=== PATIENT | male | born 1965 | race American Indian/Alaskan Native ===

== ENCOUNTER 2021-01-02 15:13 | Emergency (ER) | payer OTHER ==
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
[2021-01-02 16:42] VITALS: BP 134/78
== END 2021-01-02 17:16 | disposition home or self-care (01) ==
LOC: ED 15:13
DX: R07.9 Chest pain, unspecified (principal); M25.562 Pain in left knee; V87.7XXA Person injured in collision between other specified motor vehicles (traffic), initial encounter; Y93.89 Activity, other specified; Y92.89 Other specified places as the place of occurrence of the external cause; Y99.8 Other external cause status
CPT/HCPCS: 71046; 99283